=== PATIENT | female | born 1960 | race Caucasian/White ===

== ENCOUNTER 2017-09-22 14:19 | Inpatient (IN) | payer BC ==
[2017-09-22] MEDS ORDERED: HEPARIN SODIUM IN D5W 25,000 UNITS/500 ML BAG IV PRN (15:33)
[2017-09-22] MEDS ORDERED: HEPARIN SODIUM INJ 5000 UNITS ONE ×2 (15:37→23:12)
[2017-09-22 15:58] LABS: BASOPHILS % (AUTO) 0.4 % (0.2-1.0); EOSINOPHILS # (AUTO) 0.1 x10^3/uL (0.0-0.2); EOSINOPHILS % (AUTO) 0.6 % (0.9-2.9); HEMATOCRIT 38.7 % (36.0-47.0); HEMOGLOBIN 13.5 g/dL (12.0-16.0); LYMPHOCYTES # (AUTO) 0.9 X10^3/uL (1.3-2.9); LYMPHOCYTES % (AUTO) 9.2 % (21.0-51.0); MEAN CORPUSCULAR HGB CONC 34.9 g/dL (33.0-35.0); MEAN CORPUSCULAR VOLUME 126.3 fL (80.0-100.0); MEAN PLATELET VOLUME 8.3 fL (7.4-11.0); MONOCYTES # (AUTO) 0.7 x10^3/uL (0.3-0.8); MONOCYTES % (AUTO) 7.5 % (0.0-13.0); NEUTROPHILS # (AUTO) 8.1 x10^3/uL (2.2-4.8); NEUTROPHILS % (AUTO) 82.3 % (42.0-75.0); PLATELET COUNT 228 X10^3/uL (150.0-450.0); RED BLOOD COUNT 3.06 X10^6/uL (3.5-5.4); RED CELL DISTRIBUTION WIDTH 16.4 % (11.6-16.5); WHITE BLOOD COUNT 9.9 X10^3/uL (3.6-10.0)
[2017-09-22] MEDS ORDERED: HEPARIN SODIUM INJ 5000 UNITS IVP ONE ×2 (16:02→23:07)
[2017-09-22] MEDS: LR 1000 ML IV 1,000 ML IV SCH (16:03)
[2017-09-22 16:09] LABS: ALANINE AMINOTRANSFERASE 6 Units/L (12-78); ALBUMIN 3.5 g/dL (3.4-5.0); ALKALINE PHOSPHATASE 209 Units/L (46-116); ASPARTATE AMINO TRANSFERASE 11 Units/L (15-37); BLOOD UREA NITROGEN 30 mg/dL (7-18); CALCIUM 9.4 mg/dL (8.5-10.1); CARBON DIOXIDE 15.3 mmol/L (21-32); CHLORIDE 99 mmol/L (98-107); CREATININE 2.19 mg/dL (0.55-1.02); SODIUM 131 mmol/L (136-145); TOTAL PROTEIN 8.4 g/dL (6.4-8.2); eGFR BLACK RACES 30 (>60); eGFR NON BLACK RACES 24 (>60)
[2017-09-22 16:11] VITALS: BMI 24.3
[2017-09-22 16:12] LABS: PLATELET MORPHOLOGY COMMENT NORMAL (NORMAL)
[2017-09-22] MEDS ORDERED: ZANAFLEX PO PRN (18:07)
[2017-09-22] MEDS: COLACE CAP 100 MG PO SCH ×2 (18:31→22:15)
[2017-09-22] MEDS: AMBIEN PO SCH (20:47)
[2017-09-22] MEDS: MILK OF MAGNESIA PO SCH (20:47)
[2017-09-22] MEDS: XARELTO PO SCH (20:47)
[2017-09-22] MEDS: NORCO 10/325 TAB PO PRN (20:47)
[2017-09-23] MEDS: LR 1000 ML IV 1,000 ML IV SCH (03:40)
[2017-09-23 05:39] LABS: BASOPHILS % (AUTO) 0.3 % (0.2-1.0); EOSINOPHILS # (AUTO) 0.1 x10^3/uL (0.0-0.2); EOSINOPHILS % (AUTO) 0.9 % (0.9-2.9); HEMATOCRIT 33.1 % (36.0-47.0); HEMOGLOBIN 11.6 g/dL (12.0-16.0); LYMPHOCYTES # (AUTO) 1.6 X10^3/uL (1.3-2.9); LYMPHOCYTES % (AUTO) 19.4 % (21.0-51.0); MEAN CORPUSCULAR VOLUME 125.5 fL (80.0-100.0); MEAN PLATELET VOLUME 8.4 fL (7.4-11.0); MONOCYTES # (AUTO) 0.7 x10^3/uL (0.3-0.8); MONOCYTES % (AUTO) 7.8 % (0.0-13.0); NEUTROPHILS % (AUTO) 71.6 % (42.0-75.0); PLATELET COUNT 215 X10^3/uL (150.0-450.0); RED BLOOD COUNT 2.64 X10^6/uL (3.5-5.4); RED CELL DISTRIBUTION WIDTH 16.6 % (11.6-16.5); WHITE BLOOD COUNT 8.4 X10^3/uL (3.6-10.0)
[2017-09-23 05:45] LABS: ALANINE AMINOTRANSFERASE < 6 Units/L (12-78); ALBUMIN 2.6 g/dL (3.4-5.0); ALKALINE PHOSPHATASE 164 Units/L (46-116); ASPARTATE AMINO TRANSFERASE 10 Units/L (15-37); BLOOD UREA NITROGEN 27 mg/dL (7-18); CALCIUM 8.7 mg/dL (8.5-10.1); CARBON DIOXIDE 17.9 mmol/L (21-32); CHLORIDE 103 mmol/L (98-107); COR CA(FOR HYPOALB) 9.8 mg/dL (8.5-10.1); CREATININE 1.96 mg/dL (0.55-1.02); SODIUM 135 mmol/L (136-145); TOTAL PROTEIN 6.7 g/dL (6.4-8.2); eGFR BLACK RACES 34 (>60); eGFR NON BLACK RACES 28 (>60)
[2017-09-23 05:47] LABS: PLATELET MORPHOLOGY COMMENT NORMAL (NORMAL)
[2017-09-23] MEDS ORDERED: NS 1000 ML 1,000 ML IV ONE (09:00)
[2017-09-23] MEDS: PROTONIX TAB 40 MG PO SCH (09:37)
[2017-09-23] MEDS: XARELTO PO SCH ×2 (09:37→20:05)
[2017-09-23] MEDS: NS 1000 ML 1,000 ML IV SCH ×2 (09:37→17:17)
[2017-09-23] MEDS: ESTRACE PO SCH (09:37)
[2017-09-23] MEDS: MILK OF MAGNESIA PO SCH ×2 (09:37→20:06)
[2017-09-23] MEDS: ZEBETA TAB 5 MG PO SCH (09:38)
[2017-09-23] MEDS: NORCO 10/325 TAB PO PRN ×2 (09:52→20:05)
[2017-09-23] MEDS: COLACE CAP 100 MG PO SCH (20:06)
[2017-09-23] MEDS: AMBIEN PO SCH (20:06)
[2017-09-24] MEDS: NS 1000 ML 1,000 ML IV SCH ×2 (00:46→09:08)
[2017-09-24 04:38] LABS: BASOPHILS % (AUTO) 0.4 % (0.2-1.0); EOSINOPHILS # (AUTO) 0.1 x10^3/uL (0.0-0.2); EOSINOPHILS % (AUTO) 1.8 % (0.9-2.9); HEMATOCRIT 29.5 % (36.0-47.0); HEMOGLOBIN 10.2 g/dL (12.0-16.0); LYMPHOCYTES # (AUTO) 1.3 X10^3/uL (1.3-2.9); LYMPHOCYTES % (AUTO) 16.5 % (21.0-51.0); MEAN CORPUSCULAR HEMOGLOBIN 44.1 pg (27.0-34.0); MEAN CORPUSCULAR HGB CONC 34.6 g/dL (33.0-35.0); MEAN CORPUSCULAR VOLUME 127.5 fL (80.0-100.0); MONOCYTES # (AUTO) 0.7 x10^3/uL (0.3-0.8); MONOCYTES % (AUTO) 9.2 % (0.0-13.0); NEUTROPHILS # (AUTO) 5.8 x10^3/uL (2.2-4.8); NEUTROPHILS % (AUTO) 72.1 % (42.0-75.0); PLATELET COUNT 240 X10^3/uL (150.0-450.0); RED BLOOD COUNT 2.32 X10^6/uL (3.5-5.4); RED CELL DISTRIBUTION WIDTH 16.5 % (11.6-16.5); WHITE BLOOD COUNT 8.1 X10^3/uL (3.6-10.0)
[2017-09-24 04:57] LABS: ALANINE AMINOTRANSFERASE < 6 Units/L (12-78); ALBUMIN 2.1 g/dL (3.4-5.0); ALKALINE PHOSPHATASE 148 Units/L (46-116); ASPARTATE AMINO TRANSFERASE 18 Units/L (15-37); BLOOD UREA NITROGEN 22 mg/dL (7-18); CALCIUM 8.3 mg/dL (8.5-10.1); CARBON DIOXIDE 18.9 mmol/L (21-32); CHLORIDE 110 mmol/L (98-107); COR CA(FOR HYPOALB) 9.8 mg/dL (8.5-10.1); CREATININE 1.76 mg/dL (0.55-1.02); SODIUM 139 mmol/L (136-145); TOTAL PROTEIN 5.8 g/dL (6.4-8.2); eGFR BLACK RACES 38 (>60); eGFR NON BLACK RACES 32 (>60)
[2017-09-24 05:31] LABS: PLATELET MORPHOLOGY COMMENT NORMAL (NORMAL)
[2017-09-24] MEDS: ZEBETA TAB 5 MG PO SCH (09:08)
[2017-09-24] MEDS: PROTONIX TAB 40 MG PO SCH (09:08)
[2017-09-24] MEDS: MILK OF MAGNESIA PO SCH (09:08)
[2017-09-24] MEDS: ESTRACE PO SCH (09:08)
[2017-09-24] MEDS: XARELTO PO SCH (09:09)
--- NOTE | 2017-09-24 11:00 | RAD ---
Examination: Chest, PA view History: Tachypneic Comparison reference: None Findings: PA upright view of chest demonstrates normal heart size with clear lungs and pleural spaces . Impression: No acute process demonstrated. Reported By:
--- NOTE | 2017-09-24 11:07 | NM ---
History : Tachypnea and deep venous thrombosis in the right lower extremity Study: Ventilation and perfusion lung nuclear medicine exam. After the intravenous injection of 6.19 mCi technetium 99 M MAA, 8 projections of the lungs were obtained to evaluate pulmonary profusion. Af ter the inhalation of 28.16 mCi technetium 99 m pertechnetate, corresponding 8 projections were obtai marietta of the lungs to evaluate ventilation. Findings: There is normal symmetrical ventilation and perfusion of the lungs. Impression: Negative, no evidence for pulmonary embolus Reported By:
[2017-09-24] MEDS ORDERED: LR 1000 ML IV 1,000 ML IV SCH (13:00)
[2017-09-24 13:51] VITALS: BP 122/64
== END 2017-09-24 15:50 | disposition home or self-care (01) | DRG 301 ==
LOC: ICU 14:19 → UNDOADMIN 14:19 → ICU 14:55 → MED/SURG 09-23 09:40
PROVIDERS: ADMIT Obstetrics & Gynecology Obstetrics; ATTEND Obstetrics & Gynecology Obstetrics
DX: I82.421 Acute embolism and thrombosis of right iliac vein (principal); R94.4 Abnormal results of kidney function studies; R00.0 Tachycardia, unspecified; E53.8 Deficiency of other specified B group vitamins; R26.89 Other abnormalities of gait and mobility; R60.0 Localized edema; R79.89 Other specified abnormal findings of blood chemistry
CPT/HCPCS: 36415; 71010; 78582; 80053; 82607; 82728; 82746; 83540; 84425; 84466; 85025; 85610; 85730; J1644; J7120

== ENCOUNTER → 2017-09-22 | Outpatient (CLI) | payer BC ==
--- NOTE | 2017-09-22 13:52 | VAS ---
History: Right leg edema and pain for 1 week Study: Doppler ultrasound of both lower extremity deep veins. Comparison: None Findings: There is no compression or augmentation or phasic flow demonstrated in the deep veins of th e right lower extremity from common femoral vein to popliteal vein. On the left there is normal compression and phasic flow and augmentation. Impression: 1. Thrombosis of the deep veins of the right lower extremity 2. Left leg negative for DVT Reported By:
== END ==
LOC: RAD 12:45
PROVIDERS: ATTEND Obstetrics & Gynecology Obstetrics
DX: R60.1 Generalized edema (principal); I82.491 Acute embolism and thrombosis of other specified deep vein of right lower extremity
CPT/HCPCS: 93970